=== PATIENT | female | born 1960 | race Two or more races ===

== ENCOUNTER 2019-08-07 12:22 | Emergency (ER) | payer OTHER ==
[~2019-08-07] VITALS: Ht 157.5 cm; Wt 64.9 kg
[~2019-08-07 12:22] MED LIST: ACETAMINOPHEN500 M1 PO; AZITHROMYCIN500 MG PO; CHLORHEXIDINE473 ML MM; Hematron LIQ. PO
== END 2019-08-07 20:23 | disposition home or self-care (01) ==
LOC: ER 12:22
DX: R10.13 Epigastric pain (principal)